=== PATIENT | female | born 1930 | race Caucasian/White ===

== ENCOUNTER 2016-07-18 00:17 | Emergency (ER) | payer MEDICARE, OTHER ==
[2016-07-18 01:13] VITALS: BP 176/75
--- NOTE | 2016-07-18 12:25 | ER ---
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 She has a home blood pressure machine and usually it runs 160s/55, tonight it was 169/50 and 182/74 and 175/78. She felt slightly dizzy this evening at 1430 hours and at 1900 hours she sat down and noted her pressure was still elevated at 181, at 2400 hours it was 201/something, she does not remember the lower pressure. She denies irregular heart beat. Denies chest pain, shortness of breath, or coughing. Denies headache. She is slightly dizzy, but denies any paresis, weakness, numbness, or difficulty in gait. She has more swelling in her ankles than usually. CURRENT MEDICATIONS: 1. Alprazolam 0.25 mg as needed. 2. Lisinopril 20 mg morning and 10 mg at bedtime. 3. She has not taken her evening amlodipine 2.5 mg at bedtime, and she uses Voltaren as needed topical, and Lasix 20 mg daily. ALLERGIES: None. The patient is attended by her friend, who brought her to the hospital because she was concerned about the slight dizziness. REVIEW OF SYSTEMS: HEENT: Negative. Wears glasses. Hearing is slightly decreased. If there is a fan running in room, she cannot hear. No neck pain. CARDIORESPIRATORY: No irregular heartbeat. No shortness of breath. No cough. No dyspnea on exertion. GI: Denies blood in her stool, black tarry stool, or change in bowels. At one time, she had heartburn, but no longer has it after she has changed to a diabetic diet. She does not eat anything that is white, i.e., potatoes or white bread, although she said she drinks milk (this also is white, one exception of white in her diet). : Occasional incontinence. 2, para 2-0-0-2. MUSCULOSKELETAL: Negative. Denies hip surgeries, knee surgeries, or arthritis. She is very active. NEURO: Negative. PREVIOUS SURGERIES: Cataract surgery, cholecystectomy, appendectomy, left wrist surgery, and spinal stenosis surgery five years ago. PHYSICAL EXAMINATION: GENERAL/VITALS: Very articulate, well-dressed woman who has a blood pressure of 175/78, 182/74, 176/75. Heart rate 64 and regular, respirations 19, oxygen saturation 98%. HEENT: PERRLA intact. No arterial nicking and retinal eye pain. NECK: Supple. No bruits in neck. Pharynx without abnormality. Hearing slightly decreased. LUNGS: Clear to auscultation without rales. No rhonchi or wheezes. HEART: S1, S2. No murmur. S2 is greater than S1. ABDOMEN: Soft. No guarding. No discomfort. No bruits. Mild increase in abdominal girth. EXTREMITIES: 1+ edema. Pulses bilateral upper and lower extremities normal. DTRs hypoactive. ASSESSMENT: 1. Elevated pressure. 2. Probably pressure is elevated because she has not taken amlodipine dose today, also I think her pressure elevations are multifactorial, one being possibly she has fluid retention, two being her work ethic - she has worked a good 18 hours today. This may have something to do with her pressure. 3. She does not appear to be anxious. 4. May be a certain degree of renovascular hypertension. 5. She just had her potassium taken 2 days ago, would not like a blood test this evening, consequently plans are to forego any lab tests. 6. No MEASUREMENT AND VERIFICATION ENGINEER effect or cardiovascular effects of the current blood pressure elevation, i.e., no history of angina. MEASUREMENT AND VERIFICATION ENGINEER effect would at most be slight lightheadedness. PLAN: Take an extra Lasix pill tonight. Recheck her blood pressure and follow up with her doctor in a week or earlier if worse. Be sure she takes her usual amlodipine dose at night. Return to the ER and her doctor earlier if any questions. OTHER DIAGNOSES: 1. Status post spinal stenosis surgery five years ago. 2. Tonsillectomy and adenoidectomy. 3. Cholecystectomy. 4. Appendectomy. 5. Fracture of left wrist. 6. Cataract surgery, bilateral. 7. Heartburn, resolved. Other etiology for pedal edema, possibly mild congestive heart failure. I did not do a BNP. Also, the other possibility could be dysfunctioning or malfunctioning of blood pressure machine. /[id number] RYANNE/CARLO
== END 2016-07-18 01:25 | disposition home or self-care (01) ==
LOC: FB.ED 00:17
DX: R03.0 Elevated blood-pressure reading, without diagnosis of hypertension (principal); Z98.890 Other specified postprocedural states; Z90.49 Acquired absence of other specified parts of digestive tract; Z98.41 Cataract extraction status, right eye; Z98.42 Cataract extraction status, left eye
CPT/HCPCS: 99282; 99283

== ENCOUNTER 2017-09-11 17:18 | Emergency (ER) | payer MEDICARE, OTHER ==
[2017-09-11] MEDS ORDERED: amLODIPine 5 MG Tab PO ONE (17:46)
--- NOTE | 2017-09-11 17:53 | EDM.PDOC ---
ED HPI GENERAL MEDICAL PROBLEM - General Chief Complaint: General Stated Complaint: HIGH BP Time Seen by Provider: 09/11/17 17:47 Source of Information: Reports: Patient History Limitations: Reports: No Limitations - History of Present Illness INITIAL COMMENTS - FREE TEXT/NARRATIVE: Sent to the ED from clinic due to high BP. Takes Lisinopril/HCTZ and Amlodipine. Dosage of Amlodipine decreased from 10mg to 5mg qhs @3 weeks ago because SBP 110. Although asymptomatic, pt believed that BP was too low. She prefers SBP to be @140. Lisinopril/HCTZ dose has not been changed. Denies CP/ SOB or headache. Onset: Today - Related Data Allergies Allergy/AdvReac Type Severity Reaction Status Date / Time latex Allergy Hives Verified 09/11/17 18:20 Sulfa (Sulfonamide Allergy Weakness Verified 09/11/17 18:20 Antibiotics) Home Meds: Home Meds ALPRAZolam [Alprazolam] 0.25 mg PO ASDIRECTED PRN 07/18/16 [History] Cholecalciferol (Vitamin D3) [Vitamin D3] 1,000 unit PO DAILY 09/11/17 [History] Ibuprofen [Advil] 200 mg PO BID 09/11/17 [History] Lisinopril/Hydrochlorothiazide [Lisinopril-Hctz 20-25 mg Tab] 2 tab PO DAILY [History] Magnesium Chloride [Mag-64] 64 mg PO DAILY 09/11/17 [History] Multivitamin [Multivitamins] 1 each PO DAILY 09/11/17 [History] Triamcinolone Acetonide [Triamcinolone Acetonide 0.1% Crm] 1 applic TOP TID PRN 09/11/17 [History] Vitamin B Complex [B Complex] 1 tab PO DAILY 09/11/17 [History] amLODIPine Besylate [Norvasc] 7.5 mg PO DAILY 30 Days #45 tablet 09/11/17 [Rx] Past Medical History - Past Health History Medical/Surgical History: Denies Medical/Surgical History HEENT History: Reports: Impaired Vision Cardiovascular History: Reports: Hypertension Musculoskeletal History: Reports: Other (See Below) Other Musculoskeletal History: spinal stenosis with back surgery about 5 years ago. Psychiatric History: Reports: Anxiety - Past Surgical History HEENT Surgical History: Reports: Tonsillectomy GI Surgical History: Reports: Appendectomy, Cholecystectomy Social & Family History - Tobacco Use Smoking Status *Q: Never Smoker - Alcohol Use Alcohol Use History: No ED ROS GENERAL - Review of Systems Review Of Systems: ROS reveals no pertinent complaints other than HPI. ED EXAM, GENERAL - Physical Exam Exam: See Below Exam Limited By: No Limitations General Appearance: Alert, WD/WN, No Apparent Distress Ears: Normal External Exam Nose: Normal Inspection Throat/Mouth: No Airway Compromise Head: Atraumatic, Normocephalic Neck: Supple Respiratory/Chest: No Respiratory Distress, Lungs Clear, Normal Breath Sounds Cardiovascular: Regular Rate, Rhythm, No Edema, No Gallop, No Murmur, No Rub GI/Abdominal: No Distention Back Exam: Full Range of Motion Extremities: Normal Range of Motion Neurological: Alert, Oriented, Normal Cognition, Normal Gait, No Motor/Sensory Deficits Psychiatric: Normal Affect, Normal Mood Skin Exam: Warm, Dry, Intact, Normal Color, No Rash Course - Vital Signs Last Recorded V/S: Last Vital Signs Temp 36.5 C 09/11/17 17:30 Pulse 96 09/11/17 17:30 Resp BP 182/72 H 09/11/17 17:57 Pulse Ox 100 09/11/17 17:30 - Orders/Labs/Meds Labs: Laboratory Tests 09/11/17 09/11/17 Range/Units 17:51 17:51 WBC 7.7 (4.5-12.0) X10-3/uL RBC 4.36 (3.23-5.20) x10(6)uL Hgb 13.4 (11.5-15.5) g/dL Hct 39.6 (30.0-51.3) % MCV 91.0 (80-96) fL MCH 30.8 (27.7-33.6) pg MCHC 33.9 (32.2-35.4) g/dL RDW 13.5 (11.5-15.5) % Plt Count 365 (125-369) X10(3)uL MPV 7.7 (7.4-10.4) fL Neut % (Auto) 59.6 (46-82) % Lymph % (Auto) 31.9 (13-37) % Apache % (Auto) 5.4 (4-12) % Eos % (Auto) 3 (1.0-5.0) % Baso % (Auto) 1 (0-2) % Neut # (Auto) 4.6 (1.6-8.3) # Lymph # (Auto) 2.5 (0.6-5.0) # Apache # (Auto) 0.4 (0.0-1.3) # Eos # (Auto) 0.2 (0.0-0.8) # Baso # (Auto) 0.0 (0.0-0.2) # Sodium 138 (135-145) mmol/L Potassium 3.8 (3.5-5.3) mmol/L Chloride 100 (100-110) mmol/L Carbon Dioxide 29 (21-32) mmol/L BUN 25 H (7-18) mg/dL Creatinine 0.9 (0.55-1.02) mg/dL Est Cr Clr Drug Dosing TNP Estimated GFR (MDRD) 59 L (>60) BUN/Creatinine Ratio 27.8 H (9-20) Glucose 100 (80-116) mg/dL Calcium 9.4 (8.6-10.2) mg/dL Meds: Medications Discontinued Medications Generic Name Dose Route Start Last Admin Trade Name Freq PRN Reason Stop Dose Admin Amlodipine Besylate 7.5 mg 09/11/17 17:46 09/11/17 17:57 Norvasc PO 09/11/17 17:47 7.5 mg ONETIME ONE Administration - Re-Assessments/Exams Free Text/Narrative Re-Assessment/Exam: 09/11/17 18:38 BP essentially unchanged. Departure - Departure Time of Disposition: 18:38 Disposition: Home, Self-Care 01 Condition: Good Clinical Impression: Hypertension Qualifiers: Hypertension type: essential hypertension Qualified Code(s): I10 - Essential ( primary) hypertension - Discharge Information *PRESCRIPTION DRUG MONITORING PROGRAM REVIEWED*: No *COPY OF PRESCRIPTION DRUG MONITORING REPORT IN PATIENT DASH: Not Applicable Prescriptions: amLODIPine Besylate [Norvasc] 7.5 mg PO DAILY 30 Days #45 tablet Instructions: Hypertension, [id number] Referrals: Jarrod Fields MD [Primary Care Provider] - Forms: ED Department Discharge Additional Instructions: Do not take your Amlodipine tonight. Restart the Amlodipine at 7.5mg tomorrow evening. Follow up with your doctor in 2 days. Return to the ER if symptoms worsen.
[2017-09-11 19:07] VITALS: BP 181/57
== END 2017-09-11 18:51 | disposition home or self-care (01) ==
LOC: FB.ED 17:18
DX: I10 Essential (primary) hypertension (principal); Z91.040 Latex allergy status; Z88.2 Allergy status to sulfonamides; Z79.899 Other long term (current) drug therapy
CPT/HCPCS: 36415; 80048; 85025; 99283; A9270

== ENCOUNTER 2018-03-12 06:36 | Day surgery (SDC) | payer MEDICARE, OTHER ==
[2018-03-12] MEDS ORDERED: Lidocaine 2% 100 MG/5 ML Syringe IVPUSH ONE (06:37)
[2018-03-12] MEDS ORDERED: Propofol 200 MG/20 ML SDV IV ONE (06:37)
[2018-03-12] MEDS ORDERED: Lactated Ringers 1,000 ML IV SCH (06:45)
[2018-03-12] MEDS ORDERED: Sodium Chloride 0.9% 10 ML Syringe FLUSH PRN (06:45)
--- NOTE | 2018-03-12 08:19 | PCM.OPNOTE ---
- General Post-Op/Procedure Note Date of Surgery/Procedure: 03/12/18 Operative Procedure(s): egd with bx Findings: gastritis with fundic gland hyperplasia esophagitis Pre Op Diagnosis: dysphagia hx of gerd Post-Op Diagnosis: gastritis. esophagitis. hiatal hernia Anesthesia Technique: MAC Primary Surgeon: Domingo Carroll Anesthesia Provider: Claire Fierro Pathology: stomach and esophagus Complications: None Condition: Good Free Text/Narrative:: see dictation
--- NOTE | 2018-03-12 10:45 | OR ---
DATE OF OPERATION: 03/12/2018 SURGEON: Domingo Carroll MD PROCEDURE PERFORMED: Esophagogastroduodenoscopy with cold forceps biopsy. PREOPERATIVE DIAGNOSES: 1. Dysphagia. 2. History of gastroesophageal reflux disease. POSTOPERATIVE DIAGNOSES: 1. Gastritis. 2. Hiatal hernia. 3. Mild esophagitis. INDICATIONS FOR PROCEDURE: This is an 87-year-old white female with known history of GERD. She noted some recent return of some dysphagia. She was offered and accepted the followup upper endoscopy. DESCRIPTION OF OPERATION: After an excellent IV sedation was administered, the bite block was inserted. The flexible endoscope was passed without difficulty down the patient's esophagus into the stomach. The stomach was then insufflated. Scope was passed through the pylorus through second portion of duodenum and slowly withdrawn. The following findings were noted. The stomach is unremarkable. Duodenum was unremarkable. Stomach demonstrated some mild gastritis with some fundic gland hyperplasia. Biopsies were taken. GE junction measured at about approximately 35 cm and there was a hiatal hernia noted. At the area of the Z-line, there was some mild inflammation noted. Biopsies were taken. The remainder of the esophageal exam appeared to be unremarkable. Stomach was deflated. Scope was removed. Results by letter. /[id number] /CARLO
[2018-03-12 11:04] VITALS: BP 104/80
== END 2018-03-12 09:25 | disposition home or self-care (01) ==
LOC: FB.SDS 06:36
PROVIDERS: ATTEND Surgery
DX: K22.70 Barrett's esophagus without dysplasia (principal); K20.9 Esophagitis, unspecified; K29.70 Gastritis, unspecified, without bleeding; K44.9 Diaphragmatic hernia without obstruction or gangrene; I12.9 Hypertensive chronic kidney disease with stage 1 through stage 4 chronic kidney disease, or unspecified chronic kidney disease; E11.22 Type 2 diabetes mellitus with diabetic chronic kidney disease; N18.3 Chronic kidney disease, stage 3 (moderate); Z79.899 Other long term (current) drug therapy; Z88.2 Allergy status to sulfonamides; Z91.040 Latex allergy status
CPT/HCPCS: 00731; 43239; 88305; 88313; 88342; J2001; J2704; J7120